=== PATIENT | female | born 1975 | race Caucasian/White ===

== ENCOUNTER 2024-06-10 12:21 | Outpatient (CLI) | payer BC ==
[~2024-06-10 12:21] MED LIST: Iopamidol 370 76% 100 ML VIAL ONE
== END 2024-06-10 12:22 | disposition home or self-care (01) ==
LOC: CT 12:21
PROVIDERS: ATTEND Internal Medicine Gastroenterology
DX: K62.89 Other specified diseases of anus and rectum (principal); R59.0 Localized enlarged lymph nodes
CPT/HCPCS: 74177; Q9967